=== PATIENT | female | born 1940 | race Caucasian/White ===

== ENCOUNTER 2019-11-19 12:26 | Outpatient (CLI) | payer MEDICARE, OTHER ==
--- NOTE | 2019-11-19 13:17 | RAD ---
Exam: Lumbar spine 4 views HISTORY: Back pain that starts in the lower back and radiates to the right hip times many years. FINDINGS: On the AP projection, there is mild leftward curvature of the lumbar spine centered at the L2-L3 level. Note, there are 5 lumbar type vertebra Visualized sacrum and bony pelvis are intact On the oblique projections, there is no evidence of spondylolysis On the lateral projection, there is no evidence of spondylolisthesis. Straightening of lumbar lordosi s is presumed to be due to patient position. Mild to moderate loss of disc space height at L1-L2. Mild loss of disc space height at L3-L4 and L4-L 5. IMPRESSION: Degenerative changes of the lumbar spine as above.
--- NOTE | 2019-11-19 13:22 | RAD ---
EXAM: 2 views of the right hip HISTORY: Right hip pain COMPARISON: None FINDINGS: 2 views of the right hip shows no evidence of acute fracture or dislocation. No degenerativ e changes are seen. No soft tissue swelling is present. IMPRESSION: No evidence of acute osseous abnormality.
== END 2019-11-19 12:27 | disposition home or self-care (01) ==
LOC: BICRAD 12:26
PROVIDERS: ATTEND Internal Medicine Rheumatology
DX: M25.551 Pain in right hip (principal); M54.5 Low back pain; M47.816 Spondylosis without myelopathy or radiculopathy, lumbar region
CPT/HCPCS: 72110

== ENCOUNTER 2020-12-01 14:43 | Outpatient (CLI) | payer MEDICARE, OTHER | END 2020-12-01 14:44 | disposition home or self-care (01) | LOC: BICMAMMO 14:43 | PROVIDERS: ATTEND Internal Medicine Rheumatology | DX: M81.0 Age-related osteoporosis without current pathological fracture (principal) | CPT/HCPCS: 77080 ==